=== PATIENT | female | born 1950 | race Caucasian/White ===

== ENCOUNTER → 2019-03-30 06:43 | Outpatient (CLI) | payer MEDICARE, OTHER ==
[~2019-03-30] VITALS: Ht 170.2 cm; Wt 100.0 kg
[~2019-03-30 06:43] MED LIST: ADVAIR 250/501 DISK INH; ALDACTONE50 MG PO; CATAPRES0.1 MG PO; CRESTOR10 MG PO; ECOTRIN81 MG PO; FOSAMAX 70 MG T70 MG; GLIMEPIRIDE1 MG PO; GUANFACINE; ICAPS AREDS1 TAB.SA PO; INDAPAMIDE2.5 MG PO; MENEST1.25 MG PO; MULTI-DAY VITAM1 TAB PO; NORVASC10 MG PO; PEPCID AC20 MG PO; POTASSIUM99 M1 PO; PROTONIX40 MG PO; RESTASIS EYE DR30 EA EACH EYE; RESTORIL15 MG PO; TOPROL XL25 MG PO; ZETIA10 MG PO
[2019-03-30 07:03] LABS: BASOPHILS 0.1 % (0-2); EOSINOPHILS 0.9 % (0-7); HEMOGLOBIN 13.1 g/dL (12-16); IMMATURE GRANULOCYTES 0.5 % (0-5); LYMPHOCYTES 17.4 % (15-50); MCHC 34.5 g/dL (31.0-37.0); MCV 95.7 fL (80.0-100.0); NEUTROPHILS 70.1 % (40-80); RBC 3.97 10x6/uL (4.00-5.40); RDW 17.6 % (11.5-14.5); WBC 7.9 10x3/uL (4.8-10.8)
[2019-03-30 07:19] LABS: ANION GAP 17.5 mmol/L (8-16); CALCIUM 8.5 mg/dL (8.5-10.1); CARBON DIOXIDE 18.7 mmol/L (21.0-32.0); POTASSIUM - SERUM 3.2 mmol/L (3.5-5.1)
[2019-03-30 07:37] LABS: APTT 30.2 SECONDS (22.8-39.4); INR 1.32 (0.85-1.17); PROTIME 15.8 SECONDS (11.6-15.0)
[2019-03-30 07:38] LABS: PLATELET COUNT 54 10x3/uL (130-400)
[2019-03-30 07:59] VITALS: BP 112/41; Ht 170.2 cm; Wt 100.0 kg
== END | disposition home or self-care (01) ==
LOC: D.SP 06:43 → D.CT 08:00 → D.SP 08:00
PROVIDERS: General Practice; ATTEND Internal Medicine Gastroenterology
DX: K74.60 Unspecified cirrhosis of liver (principal); Z53.9 Procedure and treatment not carried out, unspecified reason; Z01.812 Encounter for preprocedural laboratory examination

== ENCOUNTER 2019-04-06 06:11 | Outpatient (CLI) | payer MEDICARE, OTHER ==
[~2019-04-06] VITALS: Ht 170.2 cm; Wt 102.3 kg
--- NOTE | ~2019-04-06 | HEMODYNAMI ---
PATIENT:LAUREEN OTERO MEDICAL RECORD: [id number] : 50 [id number] ADMISSION DATE: 04/06/19 Generatedon:04/06/201910:59 Patient name: LAUREEN OTERO Patient #: [id number] SSN: : 1950 Date of study: 04/06/2019 Page: Of Hemodynamic Procedure Report Patient Data Patient Demographics Procedure consent was obtained First Name: LAUREEN Gender: Female Last Name: BRANDEN : 1950 Middle Initial: Ilana Age: 68 year(s) Patient #: [id number] Race: Unknown Additional ID: [id number] Contact details [address]: [address] [place] [address] ROAD State: [place] City: [place] Zip code: [address] Admission Admission Data Admission Date: 04/06/2019 Admission Time: 6:11 Procedure Procedure Types Cath Procedure Peripheral Cath Diagnostic Procedure Miscellaneous Procedure Description Procedure Date Procedure Date: 04/06/2019 Procedure Start Time: 10:31 Procedure Staff Name Function Arpan Mehta MD Performing Physician Delon Ortiz RT Monitor SEA PELAEZ RT Scrub Tiffany Sosa RN Nurse Monique Lopez RN Nurse Procedure Data Cath Procedure Fluoroscopy Diagnostic fluoroscopy Total fluoroscopy Time: 7.1 time: 7.1 min min Diagnostic fluoroscopy Total fluoroscopy dose: 178 dose: 178 mGy mGy Contrast Material Contrast Material Type Amount (ml) Isovue 300 10 Procedure Medications Medication Administration Route Dosage Heparin Flush Bag added to field 1 bags (1000units/500ml NS) Lidocaine 1% added to field 20 Versed I.V. 1 mg Fentanyl I.V. 50 mcg Hemodynamics Rest Heart Rate: 79 (bpm) Snapshots Pre Cath Intra NCS Post Cath Vital Signs Time Heart Resp SPO2 etCO2 NIBP (mmHg) Rhythm Pain Sedation Rate (ipm) (%) (mmHg) Status Level (bpm) 10:17:19 78 24 100 19.5 137/60(92) NSR 0 (11) 10(A) , No pain 10:23:32 81 29 100 20.3 145/64(94) NSR 0 (11) 10(A) , No pain 10:27:58 76 23 100 21 144/64(91) NSR 0 (11) 10(A) , No pain 10:32:04 83 23 100 22.6 156/77(108) NSR 0 (11) 8(A) , No pain 10:36:30 84 36 100 23.3 134/58(102) NSR 0 (11) 8(A) , No pain 10:40:55 81 19 100 21.8 145/65(100) NSR 0 (11) 8(A) , No pain 10:45:17 79 20 100 22.6 145/65(95) NSR 0 (11) 8(A) , No pain 10:50:16 66 43 99 22.5 Measuring NSR 0 (11) 8(A) , No pain 10:50:35 95 23 99 22.5 129/63(95) NSR 0 (11) 8(A) , No pain 10:54:53 86 14 99 21.8 145/73(101) NSR 0 (11) 8(A) , No pain 10:59:29 80 22 100 18.8 137/29(36) NSR 0 (11) 8(A) , No pain Medications Time Medication Route Dose Verified Delivered Reason Notes Effec tiveness by by 10:23:57 Heparin Flush added 1 Arpan Antony used for Bag to bags Tyson Mehta MD procedure (1000units/500ml field RAMIREZ NS) 10:24:16 Lidocaine 1% added 20ml Arpan Antony used for to vial Tyson Mehta MD procedure field RAMIREZ 10:30:37 Versed I.V. 1 mg Arpan Allen for Ian Mehta RN sedation 10:30:48 Fentanyl I.V. 50 Arpan Allen for mcg Ian Mehta RN sedation Procedure Log Time Note 10:03:40 Delon Ortiz RT (R) (CV) sent for patient. Start room use. 10:03:48 Time tracking: Regular hours (M-F 7:00 - 5:00) 10:03:55 Plan of Care:Hemodynamics will remain stable., Cardiac rhythm will remain stable., Comfort level will be maintained., Respiratory function will remain adequate., Patient/ family verbilizes understanding of procedure., Procedure tolerated without complication., Recovers from procedure without complications.. 10:04:07 Patient received from Outpatients to IR Alert and oriented. Tansferred to table in Supine position. 10:04:11 Correct patient and procedure confirmed by team. 10:04:14 Signed procedure consent form obtained from patient. 10:08:11 ECG and BP/O2 sat monitors applied to patient. 10:08:12 - 10:08:13 Full Disclosure recording started 10:08:18 H&P Date Dictated: 04/06/2019 H&P Addendum completed by physician on day of procedure. (MUST COMPLETE FOR ALL OUTPATIENTS). 10:08:19 Pre-procedure instructions explained to patient. 10:08:20 Pre-op teaching completed and patient verbalized understanding. 10:08:21 Family in waiting room. 10:08:23 Patient NPO since Midnight. 10:10:22 Is the patient allergic to Iodine/contrast media? No. 10:10:26 Was the patient premedicated? No 10:10:31 Is patient on blood thinner?No 10:10:32 - 10:10:33 ----Pre-sedation anethsthesia assessment.---- 10:10:37 Previous problem with sedation/anesthesia? No ? 10:10:38 Snore? Yes 10:10:39 Sleep apnea? No 10:10:42 Deviated septum? No 10:10:44 Opens mouth fully? Yes 10:10:46 Sticks out tongue? Yes 10:10:53 Dentures? No ? 10:11:01 Airway obstruction? Yes asthma 10:11:10 Patient pain scale 0/10 no pain. 10:11:19 IV patent on arrival in left forearm with 0.45%NaCl at [facility]. 10:11:24 Sharps counted by scrub and verified by R.N. 10:11:25 Alarms reviewed by R. N. 10:11:34 Right neck area was prepped with chlora-prep and draped in sterile fashion 10:11:40 Use device set IR Diagnostic 10:11:41 Bag Decanter (2002S) opened to sterile field. 10:11:42 Sterile Angiographic Pack opened to sterile field. 10:13:21 Micropuncture VSI 4FR kit opened to sterile field. 10:13:21 Tegaderm 4 x 4 (1626W) opened to sterile field. 10:22:16 Vital chart was started 10:22:20 Baseline sample Acquired. 10:23:57 Heparin Flush Bag (1000units/500ml NS) 1 bags added to field was administered by Arpan Mehta MD; used for procedure; 10:24:16 Lidocaine 1% 20ml vial added to field was administered by Arpan Mehta MD; used for procedure; 10:30:24 Physician arrived 10:30:25 --------ALL STOP TIME OUT------ 10:30:25 Final Timeout: patient, procedure, and site verified with staff and physician. All members of the team are in agreement. 10:30:34 Right neck site verified by team. 10:30:37 Versed 1 mg I.V. was administered by Tiffany Sosa RN; for sedation; 10:30:41 Fire Safety Assessment: A--An alcohol-based skin anteseptic being used preoperatively., C--Open oxygen or nitrous oxide is being used. 10:30:45 Sedation plan: IV Moderate Sedation Medication:Versed, Fentanyl 10:30:48 Fentanyl 50 mcg I.V. was administered by Tiffany Sosa RN; for sedation; 10:31:00 Procedure started. 10:31:06 Local anesthetic to right IJ vein with Lidocaine 1% by Arpan Mehta MD.INITIAL ACCESS ONLY 10:33:17 KIT LIVER BX ACCESS (D75001) opened to sterile field. 10:33:17 GLIDE CATHETER 5FR ANGLED 65cm (CG507) opened to sterile field. 10:37:06 SHEATH 6FR [place] (SOX423) opened to sterile field. 10:38:17 GLIDE WIRE MERIT Angled 260cm ([id number]) opened to sterile field. 10:40:29 AMPLATZ Short Taper 260cm wire ([id number]) opened to sterile field. 10:52:34 Procedure ended.(Physican Out) 10:52:57 Fluoroscopy time 07.10 minutes. 10:53:01 Fluoroscopy dose: 178 mGy 10:53:01 Flurop Dose total: 178 10:53:06 Sharps counted by scrub and verified by R.N. 10:53:07 Insertion/operative site no bleeding no hematoma. 10:53:12 Post-op/insertion site Right Jugular vein dressed using a 4 x 4 and Tegaderm. 10:53:16 Post right IJ vein:stable 10:53:26 Contrast amount:Isovue 300 10ml. 10:54:25 Post procedure instruction explained to patient.Patient verbalizes understanding. 10:54:25 Procedure and supply charges have been captured, reviewed, submitted an d are correct. 10:59:22 Report given to Outpatients. 10:59:26 Patient transfered to Outpatients with Stretcher. 10:59:46 Vital chart was stopped Device Usage Item Name Manufacture Quantity Catalog Number Hospital Part Current M inimal Lot# / Charge Number Stock Stock Serial# Code Bag Decanter Microtek 1 [id number] 5 () Medical Inc. Sterile Cardinal 1 [id number] 190737 5 Angiographic Health Pack Micropuncture VSI VASCULAR 1 [id number] 909721 220286 5 VSI 4FR kit SOLUTIONS Tegaderm 4 x 4 3M 1 1626W 181897 089804 770689 5 (1626W) KIT LIVER BX Cook Medical 1 T60034 601110 118503 564296 5 [id number] ACCESS ([id number]) GLIDE CATHETER Terumo 1 CG507 936998 153816 5 5FR ANGLED 65cm (CG507) SHEATH 6FR Terumo 1 AIH153 957182 625175 161540 4 0 [place] ([id number]) GLIDE WIRE Merit 1 [id number] 660991 537616 077546 5 [id number] MERIT Angled Medical 260cm ([id number]) AMPLATZ Short [place] 1 [id number] 033729 362858 549128 5 [id number] Taper 260cm Scientific wire ([id number]) Signature Audit [place] Stage Time Signature Unsigned Intra-Procedure 04/06/2019 Delon 10:59:43 AM Diana RT (R) (CV) Signatures Monitor : Delon Signature : Diana RT Date : Time : [address] [address] [place] [address]
[2019-04-06 06:44] LABS: BASOPHILS 0.3 % (0-2); EOSINOPHILS 1.5 % (0-7); HEMATOCRIT 34.2 % (36.0-48.0); HEMOGLOBIN 11.6 g/dL (12-16); IMMATURE GRANULOCYTES 0.3 % (0-5); LYMPHOCYTES 16.7 % (15-50); MCHC 33.9 g/dL (31.0-37.0); MCV 97.2 fL (80.0-100.0); MEAN PLATELET VOLUME 12.5 fL (7.4-10.4); MONOCYTES 10.2 % (2-11); RBC 3.52 10x6/uL (4.00-5.40); RDW 17.7 % (11.5-14.5)
[2019-04-06 06:59] LABS: ANION GAP 13.1 mmol/L (8-16); CALCIUM 9.2 mg/dL (8.5-10.1); CARBON DIOXIDE 21.3 mmol/L (21.0-32.0); CREATININE - SERUM 1.9 mg/dL (0.6-1.3); POTASSIUM - SERUM 3.4 mmol/L (3.5-5.1)
[2019-04-06 07:03] LABS: PLATELET COUNT 42 10x3/uL (130-400)
[2019-04-06 07:12] LABS: APTT 34.1 SECONDS (22.8-39.4); INR 1.34 (0.85-1.17)
[2019-04-06 07:16] VITALS: BP 127/51; Ht 170.2 cm; Wt 102.3 kg
--- NOTE | 2019-04-06 08:25 | NUR ---
PT HAS BRUISES TO BUE AND BLE, PT STATES THAT BRUISING IS CHRONIC DUE TO LOW PLATELETS.
[2019-04-06 11:17] LABS: PLATELET COUNT 46 10x3/uL (130-400)
[2019-04-06 12:11] LABS: PLATELET ESTIMATE DECREASED
--- NOTE | 2019-04-06 12:42 | NUR ---
1230 SEE POST PROCEDURE CHECKLIST FOR VITAL SIGN TRENDS. 1235 PLACED ON BEDPAN, VOIDS 200CC YELLOW URINE. 12[address] [facility] SERVED ADA FINGER FOOD DIET ORDERED.
--- NOTE | 2019-04-06 12:58 | NUR ---
1245 NO BLEEDING NOR HEMATOMA NOTED. 1255 FINGER FOOD DIET SERVED. FAMILY RETURNED TO ROOM. HOB ELEVATED TO 45 DEGREES TO EAT.
== END 2019-04-06 16:25 | disposition home or self-care (01) ==
LOC: D.SP 06:11 → D.RAD 08:00 → D.SP 08:00
PROVIDERS: ATTEND General Practice
DX: K74.60 Unspecified cirrhosis of liver (principal); D69.6 Thrombocytopenia, unspecified; Z01.812 Encounter for preprocedural laboratory examination

== ENCOUNTER 2019-04-29 09:23 | Day surgery (SDC) | payer MEDICARE, OTHER ==
[~2019-04-29] VITALS: Ht 170.2 cm; Wt 95.5 kg
[2019-04-29 09:58] LABS: HEMOGLOBIN 12.1 g/dL (12-16); MCH 33.4 pg (26.0-34.0); MCHC 34.6 g/dL (31.0-37.0); MCV 96.7 fL (80.0-100.0); MEAN PLATELET VOLUME 10.6 fL (7.4-10.4); PLATELET COUNT 52 10x3/uL (130-400); RBC 3.62 10x6/uL (4.00-5.40); RDW 17.5 % (11.5-14.5); WBC 4.9 10x3/uL (4.8-10.8)
[2019-04-29 10:03] LABS: APTT 29.8 SECONDS (22.8-39.4); INR 1.4 (0.85-1.17); PROTIME 16.6 SECONDS (11.6-15.0)
[2019-04-29 10:10] LABS: ALBUMIN 3.3 g/dL (3.4-5.0); ANION GAP 13.4 mmol/L (8-16); BILIRUBIN - TOTAL 1.84 mg/dL (0.2-1.3); CALCIUM 8.3 mg/dL (8.5-10.1); CARBON DIOXIDE 20.7 mmol/L (21.0-32.0); CREATININE - SERUM 2.1 mg/dL (0.6-1.3); POTASSIUM - SERUM 3.1 mmol/L (3.5-5.1); PROTEIN - SERUM 6.3 g/dL (6.4-8.2)
[2019-04-29] MEDS ORDERED: CALCIUM 500 +1 EAC3 PO (10:22)
[2019-04-29] MEDS ORDERED: SYMBICORT 16010.2 GM INH (10:23)
[2019-04-29] MEDS ORDERED: KEFLEX500 MG PO (10:23)
[2019-04-29] MEDS ORDERED: AMOXICILLIN500 M1 PO (10:24)
[2019-04-29] MEDS ORDERED: SINGULAIR10 MG PO (10:24)
[2019-04-29 10:28] VITALS: BP 114/45; Ht 170.2 cm; Wt 95.5 kg
[2019-04-29 11:17] LABS: PLATELET ESTIMATE DECREASED
--- NOTE | 2019-04-29 11:31 | NUR ---
1131 LOW SODIUM FULL LIQUID DIET ORDERED. DR. SALVATORE PAYAN.
--- NOTE | 2019-04-29 12:27 | NUR ---
1220 ALL DISCHARGE INSTRUCTIONS GIVEN. IV REMOVED WITH CATHALON INTACT. DRESSED AT BEDSIDE. TAKEN DOWN VIA W/C AND DC'D HOME. ADVISED TO CALL OR COME BACK IF ANY PROBLEMS.
--- NOTE | 2019-04-29 17:26 | OP ---
PATIENT NAME: LAUREEN OTERO MEDICAL RECORD: [id number] :50 LOCATION:[facility] ADMISSION DATE: SURGEON: TOM CHASE DO DATE OF OPERATION: 04/29/2019 PROCEDURE: EGD with biopsies. INDICATIONS FOR PROCEDURE: Cirrhosis. SCOPE: Olympus video gastroscope. MEDICATIONS: Propofol 320 mg IV per anesthesia. ESTIMATED BLOOD LOSS: Minimal. COMPLICATIONS: None. FINDINGS: Informed consent was given. The patient was made comfortable with the above medication. After reaching an adequate level of sedation by slow IV push, the patient was placed on her left side. The endoscope was advanced under direct visualization through the mouth to the fourth portion of the duodenum with ease. The upper esophagus appeared normal. In the middle and distal thirds of the esophagus, there were grade II to grade III esophageal varices without bleeding stigmata present. No bands were placed on today's examination and these will be reevaluated in the future. At the GE junction, there was evidence of LA class A reflux-induced esophagitis. The endoscope was advanced beyond the GE junction into the stomach and retroflexed to view the cardia, which appeared relatively normal. Throughout the stomach, there was diffuse sgwryvmk-vw-ioehma portal hypertensive gastropathy characterized by congestion and erythema. In the fundus and body of the stomach, there were multiple fundic gland polyps. There was a group of approximately 4 polyps in the mid body of the stomach that were fairly large. Sizes ranged from approximately 1 cm to 1.5 cm. These were not actively bleeding, but can be a source of oozing of blood chronically. Due to the patient's low platelet level near 50,000 and elevated INR above 1.4 on today's examination, these were not biopsied or removed due to their high risk of significant bleeding. A single cold forceps biopsy was taken from the antrum to submit for histopathology and to rule out the presence of H. pylori. The endoscope was advanced beyond the pylorus into the duodenum down to the fourth portion with ease. The duodenum appeared normal, but did have obbm-ng-xzrnwdye portal hypertensive duodenopathy. The endoscope was withdrawn from the patient. The patient tolerated the procedure well and there were no complications. IMPRESSION: 1. Grade II to grade III esophageal varices without bleeding stigmata. No bands were placed on today's examination. 2. LA class A reflux-induced esophagitis. 3. Portal hypertensive gastropathy. 4. Multiple fundic gland polyps. 5. Portal hypertensive duodenopathy. PLAN AND RECOMMENDATIONS: 1. Discharge home when recovery parameters are met. 2. Follow up biopsy specimen results. 3. GERD diet and reflux precautions and a low sodium diet. OPERATIVE REPORT [id number] LAUREEN OTERO 4. We will recommend a repeat EGD in approximately 6 months' time to reevaluate the esophageal varices and fundic gland polyps. Prior to that procedure, I do recommend that we give the patient Doptelet to raise her platelet levels and can consider administration of FFP at the time of the procedure if the INR is significantly elevated. Pending lab results, may consider banding and removal of polyps at that time. TRANSINT:[id number] Voice Confirmation ID: [id number] DOCUMENT ID: [id number] TOM CHASE DO at 1726 CC: [id number] DICTATION DATE: 04/29/19 1105 HIP HOP DANCER: 04/29/19 1120 [facility] 04/29/19 [facility] [address] [place] [address]
== END 2019-04-29 12:20 | disposition home or self-care (01) ==
LOC: D.OPS 09:23
PROVIDERS: Anesthesiology; ATTEND Internal Medicine Gastroenterology
DX: K74.60 Unspecified cirrhosis of liver (principal); K76.6 Portal hypertension; K31.89 Other diseases of stomach and duodenum; I85.10 Secondary esophageal varices without bleeding; K31.7 Polyp of stomach and duodenum; Z01.812 Encounter for preprocedural laboratory examination

== ENCOUNTER 2019-05-01 06:17 | Outpatient (CLI) | payer MEDICARE, OTHER ==
[~2019-05-01] VITALS: Ht 170.2 cm; Wt 95.5 kg
[~2019-05-01 06:17] MED LIST changes: +AMOXICILLIN500 M1 PO; +CALCIUM 500 +1 EAC3 PO; +KEFLEX500 MG PO; +SINGULAIR10 MG PO; +SYMBICORT 16010.2 GM INH
[2019-05-01 06:37] LABS: BASOPHILS 0.4 % (0-2); EOSINOPHILS 1.6 % (0-7); HEMATOCRIT 33.9 % (36.0-48.0); HEMOGLOBIN 11.5 g/dL (12-16); IMMATURE GRANULOCYTES 0.2 % (0-5); LYMPHOCYTES 17.7 % (15-50); MCHC 33.9 g/dL (31.0-37.0); MCV 97.1 fL (80.0-100.0); MONOCYTES 10.3 % (2-11); NEUTROPHILS 69.8 % (40-80); RBC 3.49 10x6/uL (4.00-5.40); RDW 17.8 % (11.5-14.5); WBC 4.5 10x3/uL (4.8-10.8)
[2019-05-01 06:46] LABS: INR 1.43 (0.85-1.17); PLATELET COUNT 45 10x3/uL (130-400); PROTIME 16.8 SECONDS (11.6-15.0)
[2019-05-01 06:50] LABS: ANION GAP 14.5 mmol/L (8-16); CARBON DIOXIDE 18.7 mmol/L (21.0-32.0); POTASSIUM - SERUM 3.2 mmol/L (3.5-5.1)
[2019-05-01 07:52] VITALS: BP 120/44; Ht 170.2 cm; Wt 95.5 kg
== END 2019-05-01 13:30 | disposition home or self-care (01) ==
LOC: D.SP 06:17 → D.CT 08:00 → D.SP 08:30
PROVIDERS: Radiology Diagnostic Radiology; ATTEND Internal Medicine Gastroenterology
DX: K74.60 Unspecified cirrhosis of liver (principal); Z01.812 Encounter for preprocedural laboratory examination

== ENCOUNTER 2019-12-21 10:23 | Day surgery (SDC) | payer MEDICARE, OTHER ==
[~2019-12-21] VITALS: Ht 170.2 cm; Wt 95.9 kg
[2019-12-21 11:09] LABS: HEMATOCRIT 34.2 % (36.0-48.0); MCH 31.4 pg (26.0-34.0); MCHC 32.2 g/dL (31.0-37.0); MCV 97.7 fL (80.0-100.0); MEAN PLATELET VOLUME 11.8 fL (7.4-10.4); RDW 19.3 % (11.5-14.5); WBC 5.9 10x3/uL (4.8-10.8)
[2019-12-21 11:12] LABS: ANION GAP 14.1 mmol/L (8-16); CALCIUM 8.6 mg/dL (8.5-10.1); CARBON DIOXIDE 19.7 mmol/L (21.0-32.0); CREATININE - SERUM 2.2 mg/dL (0.6-1.3); POTASSIUM - SERUM 3.8 mmol/L (3.5-5.1)
[2019-12-21 11:19] LABS: PLATELET COUNT 35 10x3/uL (130-400)
[2019-12-21] MEDS ORDERED: NOVOLIN R100 U/ML SC (11:40)
[2019-12-21] MEDS ORDERED: CHRONULAC30 ML PO (11:41)
[2019-12-21] MEDS ORDERED: PRIMSOL50 MG/5 ML PO (11:41)
[2019-12-21] MEDS ORDERED: XIFAXAN550 MG PO (11:42)
[2019-12-21] MEDS ORDERED: CULTURELLE HLT1 EACH (11:43)
[2019-12-21] MEDS ORDERED: RECLAST 55 MG/100 M IV (11:44)
[2019-12-21 11:46] VITALS: BP 131/57; Ht 170.2 cm; Wt 95.9 kg
[2019-12-21 11:52] LABS: INR 1.42 (0.85-1.17); PROTIME 17.3 SECONDS (11.6-15.0)
[2019-12-21 12:44] LABS: PLATELET ESTIMATE DECREASED
--- NOTE | 2019-12-21 15:24 | NUR ---
1510 IV REMOVED AND INSTRUCTIONS GIVEN ON TRANSFUSION AND UPPER GI
--- NOTE | 2019-12-22 13:06 | OP ---
PATIENT NAME: LAUREEN OTERO MEDICAL RECORD: [id number] :50 LOCATION:[facility] ADMISSION DATE: SURGEON: TOM CHASE DO DATE OF OPERATION: 12/21/2019 PROCEDURE: EGD. INDICATIONS: Cirrhosis with a history of esophageal varices. SCOPE: Olympus video gastroscope. MEDICATIONS: Propofol 220 mg IV per anesthesia. ESTIMATED BLOOD LOSS: Minimal. COMPLICATIONS: None. FINDINGS: Informed consent was given. The patient was made comfortable with the above medication. After reaching an adequate level of sedation by slow IV push, the patient was placed on her left side. The endoscope was advanced under direct visualization through the mouth to the second portion of the duodenum. In the esophagus, there were grade II esophageal varices in the mid and distal esophagus. There were no bleeding stigmata and no bands were placed on today's examination. At the GE junction, there was evidence of LA class A reflux-induced esophagitis. The endoscope was advanced beyond the GE junction into the stomach. Throughout the stomach, there was moderate portal hypertensive gastropathy. Retroflexion was performed to look at the cardia and fundus. There were no gastric varices visualized. There was a small sliding hiatal hernia. Throughout the stomach, there were fundic gland polyps of varying sizes. No biopsies were taken of these polyps today due to the patient's low platelet level and elevated INR. The endoscope was advanced beyond the pylorus into the duodenum where there was evidence of portal hypertensive duodenopathy. The endoscope was withdrawn from the patient. The patient tolerated the procedure well and there were no immediate complications. IMPRESSION: 1. Grade II esophageal varices involving the mid and distal esophagus. 2. LA class A reflux-induced esophagitis. 3. Multiple fundic gland polyps located throughout the stomach. 4. Moderate portal hypertensive gastropathy and duodenopathy. 5. Small sliding hiatal hernia. PLAN AND RECOMMENDATIONS: 1. Discharge home when recovery parameters are met. 2. GERD diet and reflux precautions as well as a low sodium diet. 3. Follow up in GI clinic as scheduled for surveillance of cirrhosis. 4. Repeat EGD in 1 year for esophageal variceal surveillance. Prior to the procedure, the patient should receive Doptelet to raise her platelet levels. Depending on her INR level at that time, she may or may not need some FFP given as well. TRANSINT:[id number] Voice Confirmation ID: [id number] DOCUMENT ID: [id number] OPERATIVE REPORT [id number] LAUREEN OTERO,TOM Mcgregor DO at 1306 CC: [id number] DICTATION DATE: 12/21/19 1355 KILN OPERATOR: 12/21/19 2209 [facility] 12/21/19 [place] [id number]
== END 2019-12-21 14:10 | disposition home or self-care (01) ==
LOC: D.OPS 10:23
PROVIDERS: Anesthesiology; ATTEND Internal Medicine Gastroenterology
DX: K74.60 Unspecified cirrhosis of liver (principal); J45.909 Unspecified asthma, uncomplicated; Z86.010 Personal history of colon polyps; E11.9 Type 2 diabetes mellitus without complications; Z79.84 Long term (current) use of oral hypoglycemic drugs; K72.90 Hepatic failure, unspecified without coma; D69.6 Thrombocytopenia, unspecified

== ENCOUNTER 2020-03-14 17:26 | Inpatient (IN) | payer MEDICARE, OTHER ==
[~2020-03-14] VITALS: Ht 170.2 cm; Wt 92.8 kg
--- NOTE | ~2020-03-14 | HEMODYNAMI ---
PATIENT:LAUREEN OTERO MEDICAL RECORD: [id number] : 50 LOCATION:D. D.2105 ADMISSION DATE: 03/14/20 Generatedon:03/15/202012:32 Patient name: LAUREEN OTERO Patient #: [id number] SSN: : 1950 Date of study: 03/15/2020 Page: Of Hemodynamic Procedure Report Patient Data Patient Demographics Procedure consent was obtained First Name: LAUREEN Gender: Female Last Name: BRANDEN : 1950 [facility] Initial: Ilana Age: 69 year(s) Patient #: [id number] Race: Unknown Additional ID: [id number] Contact details Address: [address] [place] [address] ROAD State: [place] City: [place] Zip code: [address] Past Medical History Allergies Allergen Reaction Date Comments Reported Zocor 03/15/2020 YAEL inhibitors 03/15/2020 Other allergy 03/15/2020 latex Admission Admission Data Admission Date: 03/14/2020 Admission Time: 21:31 Room #: D.2105 Procedure Procedure Types Cath Procedure Peripheral Cath Diagnostic Procedure Director Of Midwifery/Staff Midwife Peripheral Procedures Miscellaneous PARACENTESIS WITH GUIDE Procedure Description Procedure Date Procedure Date: 03/15/2020 Procedure Start Time: 11:56 Procedure Staff Name Function Tristan Alonso MD Performing Physician Lesa Childers RT Hog Cutter Delon Ortiz RT Scrub Monique Lopez RN Nurse Valeria MCDONOUGH RN Nurse Hemodynamics Rest Pre Cath Intra NCS Post Cath Procedure Log Time Note 11:31:26 [id number] 8FR CATH DRAIN TRAY opened to sterile field. 11:33:25 Signed procedure consent form obtained from patient. 11:45:29 Time tracking: Regular hours (M-F 7:00 - 5:00) 11:45:35 Plan of Care:Hemodynamics will remain stable., Cardiac rhythm will remain stable., Comfort level will be maintained., Respiratory function will remain adequate., Patient/ family verbilizes understanding of procedure., Procedure tolerated without complication., Recovers from procedure without complications.. 11:45:43 Patient received from [employer] II to IR Alert and oriented. Tansferred to table in Supine position. 11:45:52 H&P Date Dictated: 03/15/2020 Within 30 days and on chart.. 11:45:54 Pre-procedure instructions explained to patient. 11:45:55 Pre-op teaching completed and patient verbalized understanding. 11:45:59 Family unavailable. 11:46:01 Patient NPO since Midnight. 11:46:21 Patient allergic to Zocor 11:46:24 Patient allergic to YAEL inhibitors 11:47:13 Patient allergic to Other allergylatex 11:47:33 - 11:47:44 Is patient on blood thinner?No 11:47:47 Patient diabetic? Yes. 11:47:50 If diabetic: On Metformin? No 11:47:57 ----Pre-sedation anethsthesia assessment.---- 11:48:00 Previous problem with sedation/anesthesia? No ? 11:48:03 Snore? No 11:48:07 Sleep apnea? No 11:48:14 Deviated septum? No 11:48:17 Opens mouth fully? Yes 11:48:19 Sticks out tongue? Yes 11:48:23 Airway obstruction? No ? 11:48:27 Dentures? No ? 11:48:29 - 11:48:38 Right abdomen area was prepped with chlora-prep and draped in sterile fashion 11:49:00 Fire Safety Assessment: A--An alcohol-based skin anteseptic being used preoperatively., C--Open oxygen or nitrous oxide is being used. 11:49:15 - 11:55:34 Physician arrived 11:55:35 --------ALL STOP TIME OUT------ 11:55:35 Final Timeout: patient, procedure, and site verified with staff and physician. All members of the team are in agreement. 11:55:40 Right abdomen site verified by team. 11:55:45 Sedation plan: Local Anesthetic Medication:Lidocaine 11:55:58 Procedure started. 11:55:59 Full Disclosure recording started 11:56:03 Local anesthetic to Abdominal area with Lidocaine 1% by Tristan Alonso MD.INITIAL ACCESS ONLY 12:30:11 Procedure ended.(Physican Out) 12:31:03 4.4 liters drained from abdomen Device Usage Item Name Manufacture Quantity Catalog Hospital Part Current Minimal Lot# / Number Charge Number Stock Stock Serial# Code [id number] CareFusion 1 [id number] 8FR CATH DRAIN TRAY Signature Audit [place] Stage Time Signature Unsigned Intra-Procedure 03/15/2020 Lesa Childers 12:32:36 PM RT(R) [facility] [address] [place] [address]
[~2020-03-14 17:26] MED LIST changes: +CHRONULAC30 ML PO; +CULTURELLE HLT1 EACH; +NOVOLIN R100 U/ML SC; +PRIMSOL50 MG/5 ML PO; +RECLAST 55 MG/100 M IV; +XIFAXAN550 MG PO
[2020-03-14] MEDS ORDERED: MACROBID100 MG PO (18:05)
[2020-03-14 18:32] LABS: BASOPHILS 0.1 % (0-2); EOSINOPHILS 0.5 % (0-7); HEMATOCRIT 35.6 % (36.0-48.0); HEMOGLOBIN 11.6 g/dL (12-16); IMMATURE GRANULOCYTES 0.7 % (0-5); LYMPHOCYTES 8.1 % (15-50); MCH 31.6 pg (26.0-34.0); MCHC 32.6 g/dL (31.0-37.0); MEAN PLATELET VOLUME 10.4 fL (7.4-10.4); NEUTROPHILS 80.6 % (40-80); RBC 3.67 10x6/uL (4.00-5.40); RDW 17.8 % (11.5-14.5); WBC 8.7 10x3/uL (4.8-10.8)
[2020-03-14 18:34] LABS: PLATELET COUNT 64 10x3/uL (130-400)
[2020-03-14 18:55] LABS: ANION GAP 20.1 mmol/L (8-16); CALCIUM 7.8 mg/dL (8.5-10.1); CARBON DIOXIDE 15.2 mmol/L (21.0-32.0); CREATININE - SERUM 2.8 mg/dL (0.6-1.3); POTASSIUM - SERUM 3.3 mmol/L (3.5-5.1)
[2020-03-14 19:02] LABS: ALBUMIN 3.1 g/dL (3.4-5.0); BILIRUBIN - TOTAL 2.31 mg/dL (0.2-1.3); PROTEIN - SERUM 6.4 g/dL (6.4-8.2)
[2020-03-14 19:06] LABS: PLATELET ESTIMATE DECREASED
[2020-03-14 19:20] LABS: APTT 35.5 SECONDS (22.8-39.4); INR 1.58 (0.85-1.17); PROTIME 18.7 SECONDS (11.6-15.0)
[2020-03-14 19:45] LABS: BILIRUBIN NEGATIVE (NEGATIVE); GLUCOSE 50 mg/dL (NEGATIVE); KETONE NEGATIVE (NEGATIVE); NITRITE NEGATIVE (NEGATIVE); SPECIFIC GRAVITY 1.015 (1.005-1.020); UROBILINOGEN NORMAL (NORMAL)
[2020-03-14 22:52] LABS: AMYLASE - SERUM 142 U/L (25-115); LIPASE 719 U/L (73-393)
--- NOTE | 2020-03-14 23:05 | NUR ---
I WENT TO ER AND BROUGHT PT TO ROOM MYSELF AT THIS TIME AND TRANSFERED OVER. PT DENIES ALL PAIN AT THIS TIME ONLY NEEDS WATER WATER IS GOTTEN FOR HER BED LOW AND LOCKED AND PT MADE COMFORTABLE
[2020-03-14 23:54] LABS: CKMB 1.6 U/L (0.0-3.6); CREATINE KINASE 88 UL (21-215); MAGNESIUM - SERUM 1.7 mg/dL (1.8-2.4); TROPONIN-I 0.059 ng/mL (0.000-0.060)
[2020-03-15 04:00] VITALS: BP 150/54
[2020-03-15 06:15] LABS: CKMB 1.4 U/L (0.0-3.6); CREATINE KINASE 75 UL (21-215); TROPONIN-I 0.055 ng/mL (0.000-0.060)
--- NOTE | 2020-03-15 07:30 | NUR ---
PT SITTING UP IN BED. FAMILY MEMBER AT BEDSIDE. RR EVEN AND UNLABORED ON RA. DENIES NEEDS OR PAIN AT THIS TIME. MADE AWARE OF PROCEDURE TODAY. VERBALIZED UNDERSTANDING. CALL LIGHT WITHIN REACH. BED IN LOWEST POSITION. WILL CONTINUE TO MONITOR.
[2020-03-15 08:10] LABS: ANION GAP 15.5 mmol/L (8-16); BILIRUBIN - TOTAL 1.78 mg/dL (0.2-1.3); CALCIUM 7.1 mg/dL (8.5-10.1); CREATININE - SERUM 2.4 mg/dL (0.6-1.3); POTASSIUM - SERUM 3.5 mmol/L (3.5-5.1); PROTEIN - SERUM 4.8 g/dL (6.4-8.2)
[2020-03-15 08:11] LABS: ALBUMIN 2.3 g/dL (3.4-5.0)
[2020-03-15 08:49] LABS: BASOPHILS 0 % (0-2); EOSINOPHILS 0.9 % (0-7); HEMATOCRIT 29.6 % (36.0-48.0); HEMOGLOBIN 9.3 g/dL (12-16); IMMATURE GRANULOCYTES 0.9 % (0-5); LYMPHOCYTES 8.8 % (15-50); MCH 30.8 pg (26.0-34.0); MCHC 31.4 g/dL (31.0-37.0); MEAN PLATELET VOLUME 10.6 fL (7.4-10.4); MONOCYTES 14.7 % (2-11); NEUTROPHILS 74.7 % (40-80); RBC 3.02 10x6/uL (4.00-5.40)
[2020-03-15 08:54] LABS: WBC 4.6 10x3/uL (4.8-10.8)
[2020-03-15 08:55] LABS: PLATELET COUNT 38 10x3/uL (130-400)
--- NOTE | 2020-03-15 08:57 | NUR ---
CRITICAL PLATELET RECIEVED. SPOKE WITH CEASAR FROM SPECIALS ABOUT PARACENTESIS IF IT WAS STILL GOING TO BE DONE TODAY. STATES SHE WILL CHAECK WITH RADIOLOGIST AND GET BACK WITH ME
[2020-03-15 10:03] VITALS: BP 126/52
--- NOTE | 2020-03-15 10:11 | NUR ---
I have reviewed this patient and I concur with the Shift Assessment completed by the Licensed Practical Nurse today this shift.
[2020-03-15 11:25] LABS: CKMB 1.7 U/L (0.0-3.6); CREATINE KINASE 85 UL (21-215); TROPONIN-I 0.055 ng/mL (0.000-0.060)
--- NOTE | 2020-03-15 12:03 | NUR ---
D/C INSTRUCTIONS REVIEWED WTIH PT, VERBALIZED UNDERSTANDING. IV D/C WITH CATHTETER TIP INTACT. PT LEFT WITH ALL BELONGINGS VIA WHEELCHAIR.
[2020-03-15 12:49] VITALS: Ht 170.2 cm; Wt 92.8 kg
[2020-03-15 13:33] VITALS: BP 91/47
[2020-03-15 15:27] LABS: MACROPHAGES BF 37 %; MESOTHELIALS BF 8 %; NEUT - BF 33 %
[2020-03-15 18:29] VITALS: BP 117/53
[2020-03-15 20:00] VITALS: BP 107/46
[2020-03-16] VITALS (7 sets, daily range): BP systolic 96–144; BP diastolic 40–74
--- NOTE | 2020-03-16 01:19 | NUR ---
PT RESTING IN BED WITH EYES CLOSED AT THIS TIME. RR EVEN AND UNLABORED. FAMILY AT BEDSIDE. NO S/S OF DISTRESS. VITALS STABLE. BED LOW CALL LIGHT WITHIN REACH. WILL CONTINUE TO MONITOR.
--- NOTE | 2020-03-16 03:34 | NUR ---
I have reviewed this patient and I concur with the Shift Assessment completed by the Licensed Practical Nurse today this shift.
[2020-03-16] MEDS ORDERED: TOPROL XL25 MG PO (03:47)
[2020-03-16 09:39] LABS: ALBUMIN 2.6 g/dL (3.4-5.0); BILIRUBIN - TOTAL 1.47 mg/dL (0.2-1.3); CALCIUM 7.1 mg/dL (8.5-10.1); CARBON DIOXIDE 18.7 mmol/L (21.0-32.0); CREATININE - SERUM 2.3 mg/dL (0.6-1.3); PROTEIN - SERUM 5.1 g/dL (6.4-8.2)
[2020-03-16 09:41] LABS: BASOPHILS 0 % (0-2); HEMATOCRIT 27.4 % (36.0-48.0); HEMOGLOBIN 8.8 g/dL (12-16); IMMATURE GRANULOCYTES 0.2 % (0-5); LYMPHOCYTES 11.9 % (15-50); MCHC 32.1 g/dL (31.0-37.0); MCV 96.5 fL (80.0-100.0); MEAN PLATELET VOLUME 11.1 fL (7.4-10.4); MONOCYTES 13.9 % (2-11); RBC 2.84 10x6/uL (4.00-5.40); RDW 17.6 % (11.5-14.5); WBC 4.6 10x3/uL (4.8-10.8)
[2020-03-16 09:45] LABS: PLATELET COUNT 39 10x3/uL (130-400)
[2020-03-16 09:46] LABS: ANION GAP 14.2 mmol/L (8-16)
[2020-03-16 09:49] LABS: POTASSIUM - SERUM 2.9 mmol/L (3.5-5.1)
--- NOTE | 2020-03-16 11:18 | NUR ---
Nutrition Follow-up: Appetite/PO intake much improved following paracentesis yesterday (-4.4 L). Denies N/V/C/D. Diet: Low Na, Carb Consistent, Glucerna TID Wt: 199# (03/15) Last BM: 03/15 Labs noted: K+ 2.9, Glu 164, Ca 7.1, Alb 2.6 Meds noted: Lactulose, Humulin, Protonix, Lasix, KDur, Zofran -Encourage PO intake and honor food preferences within diet restrictions. -Monitor wt; noted daily wts ordered. -RD following.
--- NOTE | 2020-03-16 12:43 | NUR ---
NOTIFIED SENIOR DYNAMICS CRM DEVELOPER OF POTASSIUM AND PLT COUNT EARLIER THIS SHIFT.
[2020-03-16 13:11] LABS: IMMUNOFIXATION Note: (()); IMMUNOGLOBULIN A 229 mg/dL (87-352); IMMUNOGLOBULIN G 870 mg/dL (586-1602); IMMUNOGLOBULIN M 106 mg/dL (26-217)
[2020-03-16 14:10] LABS: SPE - A/G RATIO 1.4 (0.7-1.7); SPE - ALBUMIN 3.1 g/dL (2.9-4.4); SPE - ALPHA-1 GLOBULIN 0.3 g/dL (0.0-0.4); SPE - ALPHA-2 GLOBULIN 0.4 g/dL (0.4-1.0); SPE - BETA GLOBULIN 0.6 g/dL (0.7-1.3); SPE - GAMMA GLOBULIN 0.9 g/dL (0.4-1.8); SPE - M-SPIKE Not Observed g/dL (Not Observed); SPE - TOTAL PROTEIN 5.3 g/dL (6.0-8.5)
--- NOTE | 2020-03-16 14:44 | NUR ---
LEFT EAR PAIN REPORTED BY PT, PT AND DTR REPORT THIS IS ONGOING AND HAS BEEN TREATED BY HER MD IN THE PAST.
[2020-03-17 04:00] VITALS: BP 106/52
[2020-03-17 05:43] LABS: HEMATOCRIT 27.2 % (36.0-48.0); HEMOGLOBIN 9.1 g/dL (12-16); LYMPHOCYTES 14.6 % (15-50); MCH 32.4 pg (26.0-34.0); MCHC 33.5 g/dL (31.0-37.0); MCV 96.8 fL (80.0-100.0); MEAN PLATELET VOLUME 9.9 fL (7.4-10.4); NEUTROPHILS 72.1 % (40-80); RBC 2.81 10x6/uL (4.00-5.40); RDW 19.2 % (11.5-14.5); WBC 4.4 10x3/uL (4.8-10.8)
[2020-03-17 05:44] LABS: PLATELET COUNT 30 10x3/uL (130-400)
[2020-03-17 05:49] LABS: ANION GAP 12.7 mmol/L (8-16); CARBON DIOXIDE 21.3 mmol/L (21.0-32.0); CREATININE - SERUM 2.3 mg/dL (0.6-1.3); MAGNESIUM - SERUM 1.4 mg/dL (1.8-2.4); PHOSPHOROUS 2.1 mg/dL (2.5-4.9)
[2020-03-17 05:51] LABS: CALCIUM 6.9 mg/dL (8.5-10.1)
[2020-03-17 08:00] VITALS: BP 118/42
--- NOTE | 2020-03-17 11:36 | MORECARE ---
CASE MANAGEMENT DISCHARGE SUMMARY PATIENT: LAUREEN OTERO UNIT: [id number] ADM DATE: 03/14/20 AGE: 69 : 50 SEX: F ROOM/BED: D.2105 AUTHOR: KIMMY CHAVEZ PHYSICIAN: REFERRING PHYSICIAN: LYNN SORIANO MD DATE OF SERVICE: 03/17/20 Discharge Plan Patient Name: LAUREEN OTERO Facility: [facility]:[place] : 1950 Planned Disposition: Home with Home Health Anticipated Discharge Date: Discharge Date: Expected LOS: Initial Reviewer: [email or web address] Initial Review Date: 03/17/2020 Generated: 03/17/20 12:36 pm DCPIA - Discharge Planning Initial Assessment Updated by [email or web address]: Susu Hussein on 03/17/20 11:34 am * Is the patient Alert and Oriented? Yes * How many steps to enter\exit or inside your home? 3 w/rails * PCP Dr. Kaveh Perez * Pharmacy [facility] on [address] * Preadmission Environment Home with Family * ADLs Partial Dependent * Partial ADLs (Assistance needed) Ambulation * Equipment Walker * List name and contact numbers for known caregivers / representatives who currently or will assist patient after discharge: Tri Otero - DIL - [phone] * Verbal permission to speak to the caregivers and representatives has been obtained from the patient. Yes * Community resources currently utilized Home Health * Please name any agencies selected above. [facility] * Additional services required to return to the preadmission environment? No * Can the patient safely return to the preadmission environment? Yes * Has this patient been hospitalized within the prior 30 days at any hospital? No Patient Name: LAUREEN OTERO Page [id number] at 1136 All edits/amendments must be made on the electronic document DICTATION DATE: 03/17/20 1136 BEAVER TRAPPER: MATTHEW 03/17/20 1136 RPT#: [id number] DC DATE: STATUS: ADM IN [facility] [address] [id number] END OF REPORT
--- NOTE | 2020-03-17 11:45 | MORECARE ---
CASE MANAGEMENT DISCHARGE SUMMARY PATIENT: LAUREEN OTERO UNIT: [id number] ADM DATE: 03/14/20 AGE: 69 : 50 SEX: F ROOM/BED: D.4862 AUTHOR: SCOTT,DOC PHYSICIAN: REFERRING PHYSICIAN: LYNN SORIANO MD DATE OF SERVICE: 03/17/20 Discharge Plan Patient Name: LAUREEN OTERO Facility: [facility]:[place] : 1950 Planned Disposition: Home with Home Health Anticipated Discharge Date: Discharge Date: Expected LOS: Initial Reviewer: [email or web address] Initial Review Date: 03/17/2020 Generated: 03/17/20 12:44 pm Comments DCP- Discharge Planning Updated by [email or web address]: Susu Hussein on 03/17/20 10:[address] Patient Name: LAUREEN OTERO Admission Status: ER Accout number: [id number] Admission Date: 03-14-2020 : 1950 Admission Diagnosis:INTRA-ABD AND PELVIC SWELLING, MASS AND LUMP, UNSP SITE Attending: LYNN SORIANO Current LOS: 3 Anticipated DC Date: Planned Disposition: Home with Home Health Primary Insurance: MEDICARE A & B Discharge Planning Comments: CM met with patient to complete initial dc planning assessment. CM educated patient on the CM role and verbal consent given by patient to complete assessment. Patient lives at home with her spouse. Her DIL, Tri, is in the room and verbal permission received to discuss discharge planning with DIL present. At discharge patient plans to return home and feels this is a safe discharge. CM discussed availability of home health, rehab services, and medical equipment. Patient states she has [facility] and would like to continue this on discharge. States she has a nurse that comes out weekly and sets up her medication and checks on her. DIL states she or her are also available to stay with patient when needed. CM called [facility] and spoke with Shan and they will continue to see patient on discharge. CM will continue to follow and will assist as needed with dc plans/needs. Household Refrigeration Mechanic: Susu Hussein DCPIA - Discharge Planning Initial Assessment Updated by [id number]: Susu Hussein on 03/17/20 11:34 am * Is the patient Alert and Oriented? Yes * How many steps to enter\exit or inside your home? 3 w/rails * PCP Dr. Kaveh Perez * Pharmacy [facility] on [address] * Preadmission Environment Home with Family * ADLs Partial Dependent * Partial ADLs (Assistance needed) Ambulation * Equipment Walker * List name and contact numbers for known caregivers / representatives who currently or will assist patient after discharge: Tri Otero - DIL - [phone] * Verbal permission to speak to the caregivers and representatives has been obtained from the patient. Yes * Community resources currently utilized Home Health * Please name any agencies selected above. [facility] * Additional services required to return to the preadmission environment? No * Can the patient safely return to the preadmission environment? Yes * Has this patient been hospitalized within the prior 30 days at any hospital? No Coverage Notice Reviewer: [id number] Liseth Hussein Notice Issued Date-Time: 03/17/2020 11:40 Notice Type: Patient Choice Letter Notice Delivered To: Patient Relationship to Patient: Self Coordinator Integrated Marketing Name: Delivery Method: HAND - Hand Delivered Aziza Days: Prior Verbal Notification: Recipient Understood Notice: Yes Recipient Signature: Yes Med Rec Note Co-signed by Attending: Coverage Notice Comment: RUPERT for [facility] Reviewer: [id number] Liseth Hussein Notice Issued Date-Time: 03/17/2020 11:40 Notice Type: IM Discharge Notice Notice Delivered To: Patient Relationship to Patient: Self Coordinator Integrated Marketing Name: Delivery Method: HAND - Hand Delivered Aziza Days: Prior Verbal Notification: Recipient Understood Notice: Yes Recipient Signature: Yes Med Rec Note Co-signed by Attending: Coverage Notice Comment: IMM explained, signed, given, copy placed in MR Last DP export: 03/17/20 10:36 a Patient Name: LAUREEN OTERO Page [id number] at 1145 All edits/amendments must be made on the electronic document DICTATION DATE: 03/17/20 1144 HOME SERVICE ADVISOR: MATTHEW 03/17/20 1144 RPT#: [id number] DC DATE: STATUS: ADM IN [facility] [address] [place] [address] END OF REPORT
[2020-03-17 12:00] VITALS: BP 115/46
[2020-03-17 16:00] VITALS: BP 124/45
--- NOTE | 2020-03-17 19:22 | NUR ---
AWAKE AND ALERT WATER GOT FOR PT NO OTHER NEEDS CALL LIGHTY IS WITH PT AND FAMILY IS IN ROOM
[2020-03-17 20:00] VITALS: BP 107/39
[2020-03-18] VITALS: BP 113/48
[2020-03-18 04:00] VITALS: BP 112/46
[2020-03-18 04:51] LABS: CARBON DIOXIDE 22.7 mmol/L (21.0-32.0); CREATININE - SERUM 2.2 mg/dL (0.6-1.3)
[2020-03-18 04:56] LABS: ANION GAP 11.8 mmol/L (8-16); POTASSIUM - SERUM 3.5 mmol/L (3.5-5.1)
[2020-03-18 04:57] LABS: CALCIUM 6.8 mg/dL (8.5-10.1)
[2020-03-18 05:02] LABS: BASOPHILS 0 % (0-2); EOSINOPHILS 2.1 % (0-7); HEMATOCRIT 25.2 % (36.0-48.0); HEMOGLOBIN 8.4 g/dL (12-16); IMMATURE GRANULOCYTES 0.3 % (0-5); LYMPHOCYTES 14.9 % (15-50); MCH 31.9 pg (26.0-34.0); MCHC 33.3 g/dL (31.0-37.0); MCV 95.8 fL (80.0-100.0); MEAN PLATELET VOLUME 10.2 fL (7.4-10.4); MONOCYTES 16.4 % (2-11); NEUTROPHILS 66.3 % (40-80); RBC 2.63 10x6/uL (4.00-5.40); RDW 17.5 % (11.5-14.5); WBC 3.8 10x3/uL (4.8-10.8)
[2020-03-18 05:03] LABS: PLATELET COUNT 33 10x3/uL (130-400)
--- NOTE | 2020-03-18 07:13 | NUR ---
ASSESSMENT DONE. DENIES NEEDS
--- NOTE | 2020-03-18 08:51 | EC ---
PATIENT:LAUREEN OTERO DATE OF SERVICE: 03/14/20 SEX: F MEDICAL RECORD: [id number] DATE OF : 50 LOCATION:D.M2 D.210 AGE OF PATIENT: 69 ADMISSION DATE: 03/14/20 REFERRING PHYSICIAN: INTERPRETING PHYSICIAN: MYRON MERRILL MD ECHOCARDIOGRAM REPORT ECHO CHARGES 4 ECHO COMPLETE Date: 03/15/20 CLINICAL DIAGNOSIS: DYSPNEA ECHOCARDIOGRAPHIC MEASUREMENTS (adult normal given) AC root (d.<3.7cm) 3.0 cm LV Septum d (<1.2 cm> 1.1 cm Valve Excursion 1.7 cm LV Septum (systole) 1.5 cm Left Atria (s.<4.0cm> 4.1 cm LVPW d(<1.2cm) 1.2 cm RV (d.<2.3cm) 2.4 cm LVPW (sytole) 1.3 cm LV diastole(<5.6CM) 5.3 cm MV E-F(>70mm/sec) cm LV systole 4.1 cm LVOT Diameter 1.6 cm MV exc.(>10mm) cm Est.ejection fraction (50-75%) % DOPPLER: LVIT cm/sec A 72 cm/sec E 76 cm/sec LA cm/sec RVSP 30.9 mmHg LVOT 100 cm/sec AOP1/2T m/s Asc. Ao 147 cm/sec RVOT 53 cm/sec RA cm/sec PA 122 cm/sec AV Gradient Peak 8.6 mmHg AV Mean 4.6 mmHg AV Area 1.4 cm MV Gradient Peak 4.5 mmHg MV Mean 2.9 mmHg MV Area cm COMMENTS: Engraver Lettering: Hunter MARTINS Animal Ride Attendant: 3 Dr. Byrne TAPE# PACS Pericardial Effusion N DATE OF SERVICE: Adequate 2D, color flow imaging, spectral Doppler, and M-Mode No LVH. LV internal motion is normal. Wall motion is normal. EF is greater than or equal to 55%. Aortic valve is tricuspid. No evidence of stenosis by Doppler interrogation. Left atrium is normal. Mitral valve shows no prolapse. Trace MR. Right-sided chambers are grossly normal. Trace TR. TRANSINT:[id number] Voice Confirmation ID: [id number] DOCUMENT ID: [id number] ECHOCARDIOGRAM REPORT [id number] BRANDEN,LAUREEN MYRON SAVAGE MD at 0851 CC: [id number] DICTATION DATE: 03/16/20 0949 ELECTRICIAN POWERHOUSE: 03/16/20 1102 ADM IN [place] [id number] [place] [id number]
--- NOTE | 2020-03-18 11:11 | MORECARE ---
CASE MANAGEMENT DISCHARGE SUMMARY PATIENT: LAUREEN OTERO UNIT: [id number] ADM DATE: 03/14/20 AGE: 69 : 50 SEX: F ROOM/BED: D.2715 AUTHOR: SCOTT,DOC PHYSICIAN: REFERRING PHYSICIAN: LYNN SORIANO MD DATE OF SERVICE: 03/18/20 Discharge Plan Patient Name: LAUREEN OTERO Facility: [facility]:[place] : 1950 Planned Disposition: Home with Home Health Anticipated Discharge Date: Discharge Date: Expected LOS: Initial Reviewer: [email or web address] Initial Review Date: 03/17/2020 Generated: 03/18/20 12:11 pm Comments DCP- Discharge Planning Updated by [email or web address]: Susu Hussein on 03/17/20 10:[address] Patient Name: LAUREEN OTERO Admission Status: ER Accout number: [id number] Admission Date: 03-14-2020 : 1950 Admission Diagnosis:INTRA-ABD AND PELVIC SWELLING, MASS AND LUMP, UNSP SITE Attending: LYNN SORIANO Current LOS: 3 Anticipated DC Date: Planned Disposition: Home with Home Health Primary Insurance: MEDICARE A & B Discharge Planning Comments: CM met with patient to complete initial dc planning assessment. CM educated patient on the CM role and verbal consent given by patient to complete assessment. Patient lives at home with her spouse. Her DIL, Tri, is in the room and verbal permission received to discuss discharge planning with DIL present. At discharge patient plans to return home and feels this is a safe discharge. CM discussed availability of home health, rehab services, and medical equipment. Patient states she has [facility] and would like to continue this on discharge. States she has a nurse that comes out weekly and sets up her medication and checks on her. DIL states she or her are also available to stay with patient when needed. CM called [facility] and spoke with Shan and they will continue to see patient on discharge. CM will continue to follow and will assist as needed with dc plans/needs. Behavioral Health Rn: Susu Hussein DCPIA - Discharge Planning Initial Assessment Updated by [id number]: Susu Hussein on 03/17/20 11:34 am * Is the patient Alert and Oriented? Yes * How many steps to enter\exit or inside your home? 3 w/rails * PCP Dr. Kaveh Perez * Pharmacy [facility] on [address] * Preadmission Environment Home with Family * ADLs Partial Dependent * Partial ADLs (Assistance needed) Ambulation * Equipment Walker * List name and contact numbers for known caregivers / representatives who currently or will assist patient after discharge: Tri Otero - DIL - [phone] * Verbal permission to speak to the caregivers and representatives has been obtained from the patient. Yes * Community resources currently utilized Home Health * Please name any agencies selected above. [facility] * Additional services required to return to the preadmission environment? No * Can the patient safely return to the preadmission environment? Yes * Has this patient been hospitalized within the prior 30 days at any hospital? No External [facility]iders [facility] Next Contact Date: Service Request Date: Service Type: Resolution: Reviewer: Comments: Coverage Notice Reviewer: [id number] Hussein Notice Issued Date-Time: 03/17/2020 11:40 Notice Type: Patient Choice Letter Notice Delivered To: Patient Relationship to Patient: Self Wood Car Builder Name: Delivery Method: HAND - Hand Delivered Aziza Days: Prior Verbal Notification: Recipient Understood Notice: Yes Recipient Signature: Yes Med Rec Note Co-signed by Attending: Coverage Notice Comment: RUPERT for [facility] Reviewer: [id number] Hussein Notice Issued Date-Time: 03/17/2020 11:40 Notice Type: IM Discharge Notice Notice Delivered To: Patient Relationship to Patient: Self Wood Car Builder Name: Delivery Method: HAND - Hand Delivered Aziza Days: Prior Verbal Notification: Recipient Understood Notice: Yes Recipient Signature: Yes Med Rec Note Co-signed by Attending: Coverage Notice Comment: IMM explained, signed, given, copy placed in MR Last DP export: 03/17/20 10:45 a Patient Name: LAUREEN OTERO Page [id number] at 1111 All edits/amendments must be made on the electronic document DICTATION DATE: 03/18/20 1111 PROJECT ANALYST: MATTHEW 03/18/20 1111 RPT#: [id number] DC DATE: STATUS: ADM IN [facility] [address] [place] [address] END OF REPORT
[2020-03-18 13:27] VITALS: BP 118/48
[2020-03-18] MEDS ORDERED: ALDACTONE25 MG PO (13:29)
[2020-03-18] MEDS ORDERED: FUROSEMIDE20 MG PO (13:32)
[2020-03-18] MEDS ORDERED: MAG-OX 400 MG400 MG PO (13:33)
--- NOTE | 2020-03-18 14:06 | NUR ---
DC GIVEN TO PT
--- NOTE | 2020-03-18 14:22 | MORECARE ---
CASE MANAGEMENT DISCHARGE SUMMARY PATIENT: LAUREEN OTERO UNIT: [id number] ADM DATE: 03/14/20 AGE: 69 : 50 SEX: F ROOM/BED: D.1923 AUTHOR: SCOTTDOC PHYSICIAN: REFERRING PHYSICIAN: LYNN SORIANO MD DATE OF SERVICE: 03/18/20 Discharge Plan Patient Name: LAUREEN OTERO Facility: [facility]:[place] : 1950 Planned Disposition: Home with Home Health Anticipated Discharge Date: Discharge Date: Expected LOS: Initial Reviewer: [email or web address] Initial Review Date: 03/17/2020 Generated: 03/18/20 3:22 pm Comments DCP- Discharge Planning Updated by [email or web address]: Susu Hussein on 03/18/20 1:[address] DC home today with home health. I spoke with Damien at [facility] and they will put her back on the schedule, clinical faxed. DCP- Discharge Planning Updated by [email or web address]: Susu Hussein on 03/17/20 10:[address] Patient Name: LAUREEN OTERO Admission Status: ER Accout number: [id number] Admission Date: 03-14-2020 : 1950 Admission Diagnosis:INTRA-ABD AND PELVIC SWELLING, MASS AND LUMP, UNSP SITE Attending: LYNN SORIANO Current LOS: 3 Anticipated DC Date: Planned Disposition: Home with Home Health Primary Insurance: MEDICARE A & B Discharge Planning Comments: CM met with patient to complete initial dc planning assessment. CM educated patient on the CM role and verbal consent given by patient to complete assessment. Patient lives at home with her spouse. Her DIL, Tri, is in the room and verbal permission received to discuss discharge planning with DIL present. At discharge patient plans to return home and feels this is a safe discharge. CM discussed availability of home health, rehab services, and medical equipment. Patient states she has [facility] and would like to continue this on discharge. States she has a nurse that comes out weekly and sets up her medication and checks on her. DIL states she or her are also available to stay with patient when needed. CM called [facility] and spoke with George and they will continue to see patient on discharge. CM will continue to follow and will assist as needed with dc plans/needs. Club Car Attendant: Susu Hussein DCPIA - Discharge Planning Initial Assessment Updated by [id number]: Susu Hussein on 03/17/20 11:34 am * Is the patient Alert and Oriented? Yes * How many steps to enter\exit or inside your home? 3 w/rails * PCP Dr. Kaveh Perez * Pharmacy [facility] on [address] * Preadmission Environment Home with Family * ADLs Partial Dependent * Partial ADLs (Assistance needed) Ambulation * Equipment Walker * List name and contact numbers for known caregivers / representatives who currently or will assist patient after discharge: Tri Otero - DIL - [phone] * Verbal permission to speak to the caregivers and representatives has been obtained from the patient. Yes * Community resources currently utilized Home Health * Please name any agencies selected above. [facility] * Additional services required to return to the preadmission environment? No * Can the patient safely return to the preadmission environment? Yes * Has this patient been hospitalized within the prior 30 days at any hospital? No External Providers [facility] Next Contact Date: Service Request Date: Service Type: Resolution: Reviewer: Comments: Coverage Notice Reviewer: [id number] Liseth Hussein Notice Issued Date-Time: 03/17/2020 11:40 Notice Type: Patient Choice Letter Notice Delivered To: Patient Relationship to Patient: Self Oyster Unloader Name: Delivery Method: HAND - Hand Delivered Aziza Days: Prior Verbal Notification: Recipient Understood Notice: Yes Recipient Signature: Yes Med Rec Note Co-signed by Attending: Coverage Notice Comment: RUPERT for [facility] Reviewer: [email or web address] Liseth Hussein Notice Issued Date-Time: 03/17/2020 11:40 Notice Type: IM Discharge Notice Notice Delivered To: Patient Relationship to Patient: Self Oyster Unloader Name: Delivery Method: HAND - Hand Delivered Aziza Days: Prior Verbal Notification: Recipient Understood Notice: Yes Recipient Signature: Yes Med Rec Note Co-signed by Attending: Coverage Notice Comment: IMM explained, signed, given, copy placed in MR Last DP export: 03/18/20 10:11 a Patient Name: BRANDENLAUREEN Page [id number] at 1422 All edits/amendments must be made on the electronic document DICTATION DATE: 03/18/201421 SAND MILL OPERATOR CORE SAND: MATTHEW 03/18/201421 RPT#: [id number] DC DATE: STATUS: ADM IN [facility] [address] [place] [address] END OF REPORT
--- NOTE | 2020-03-18 14:59 | NUR ---
DC HOME PER PERSONAL CAR
--- NOTE | 2020-03-21 08:58 | MORECARE ---
CASE MANAGEMENT DISCHARGE SUMMARY PATIENT: LAUREEN OTERO UNIT: [id number] ADM DATE: 03/14/20 AGE: 69 : 50 SEX: F ROOM/BED: D.9915 AUTHOR: SCOTT,DOC PHYSICIAN: REFERRING PHYSICIAN: LYNN SORIANO MD DATE OF SERVICE: 03/21/20 Discharge Plan Patient Name: LAUREEN OTERO Facility: [facility]:[place] : 1950 Planned Disposition: Home with Home Health Anticipated Discharge Date: Discharge Date: 03/18/2020 Expected LOS: Initial Reviewer: [email or web address] Initial Review Date: 03/17/2020 Generated: 03/21/20 9:58 am Comments DCP- Discharge Planning Updated by [email or web address]: Susu Hussein on 03/18/20 1:[address] DC home today with home health. I spoke with Damien at [facility] and they will put her back on the schedule, clinical faxed. DCP- Discharge Planning Updated by [id number]: Susu Hussein on 03/17/20 10:[address] Patient Name: LAUREEN OTERO Admission Status: ER Accout number: [id number] Admission Date: 03-14-2020 : 1950 Admission Diagnosis:INTRA-ABD AND PELVIC SWELLING, MASS AND LUMP, UNSP SITE Attending: LYNN SORIANO Current LOS: 3 Anticipated DC Date: Planned Disposition: Home with Home Health Primary Insurance: MEDICARE A & B Discharge Planning Comments: CM met with patient to complete initial dc planning assessment. CM educated patient on the CM role and verbal consent given by patient to complete assessment. Patient lives at home with her spouse. Her DIL, Tri, is in the room and verbal permission received to discuss discharge planning with DIL present. At discharge patient plans to return home and feels this is a safe discharge. CM discussed availability of home health, rehab services, and medical equipment. Patient states she has [facility] and would like to continue this on discharge. States she has a nurse that comes out weekly and sets up her medication and checks on her. DIL states she or her are also available to stay with patient when needed. CM called [facility] and spoke with George and they will continue to see patient on discharge. CM will continue to follow and will assist as needed with dc plans/needs. Managed Care Specialist: Susu Hussein DCPIA - Discharge Planning Initial Assessment Updated by [id number]: Susu Hussein on 03/17/20 11:34 am * Is the patient Alert and Oriented? Yes * How many steps to enter\exit or inside your home? 3 w/rails * PCP Dr. Kaveh Perez * Pharmacy [facility] on [address] * Preadmission Environment Home with Family * ADLs Partial Dependent * Partial ADLs (Assistance needed) Ambulation * Equipment Walker * List name and contact numbers for known caregivers / representatives who currently or will assist patient after discharge: Tri Otero - DIL - [phone] * Verbal permission to speak to the caregivers and representatives has been obtained from the patient. Yes * Community resources currently utilized Home Health * Please name any agencies selected above. [facility] * Additional services required to return to the preadmission environment? No * Can the patient safely return to the preadmission environment? Yes * Has this patient been hospitalized within the prior 30 days at any hospital? No Coverage Notice Reviewer: [id number] Liseth Hussein Notice Issued Date-Time: 03/17/2020 11:40 Notice Type: Patient Choice Letter Notice Delivered To: Patient Relationship to Patient: Self Room Service Manager Name: Delivery Method: HAND - Hand Delivered Aziza Days: Prior Verbal Notification: Recipient Understood Notice: Yes Recipient Signature: Yes Med Rec Note Co-signed by Attending: Coverage Notice Comment: [facility] for [facility] Reviewer: [id number] Liseth Hussein Notice Issued Date-Time: 03/17/2020 11:40 Notice Type: IM Discharge Notice Notice Delivered To: Patient Relationship to Patient: Self Room Service Manager Name: Delivery Method: HAND - Hand Delivered Aziza Days: Prior Verbal Notification: Recipient Understood Notice: Yes Recipient Signature: Yes Med Rec Note Co-signed by Attending: Coverage Notice Comment: IMM explained, signed, given, copy placed in MR Last DP export: 03/18/20 1:22 p Patient Name: LAUREEN OTERO Page [id number] at 0858 All edits/amendments must be made on the electronic document DICTATION DATE: 03/21/20 0858 K 12 SCHOOL PROFESSIONAL: MATTHEW 03/21/20 0858 RPT#: [id number] DC DATE:03/18/20 STATUS: DIS IN [facility] [address] [place] [address] END OF REPORT
== END 2020-03-18 14:59 | disposition home health service (06) | DRG 432 ==
LOC: D.ER 17:26 → D.M2 21:31
PROVIDERS: Family Medicine; Internal Medicine Gastroenterology; Internal Medicine Hematology & Oncology; Internal Medicine Nephrology; Radiology Diagnostic Radiology; ADMIT Family Medicine; ATTEND Family Medicine
PROC: 0W9G3ZZ Drainage of Peritoneal Cavity, Percutaneous Approach (ICD-10-PCS; principal; 2020-03-15 11:45)
DX: K74.60 Unspecified cirrhosis of liver (principal); K72.00 Acute and subacute hepatic failure without coma; R18.8 Other ascites; N17.9 Acute kidney failure, unspecified; D61.818 Other pancytopenia; K86.2 Cyst of pancreas; K86.89 Other specified diseases of pancreas; E11.65 Type 2 diabetes mellitus with hyperglycemia; E11.22 Type 2 diabetes mellitus with diabetic chronic kidney disease; I12.9 Hypertensive chronic kidney disease with stage 1 through stage 4 chronic kidney disease, or unspecified chronic kidney disease; N18.3 Chronic kidney disease, stage 3 (moderate); K76.0 Fatty (change of) liver, not elsewhere classified; K21.9 Gastro-esophageal reflux disease without esophagitis; M81.0 Age-related osteoporosis without current pathological fracture; K80.20 Calculus of gallbladder without cholecystitis without obstruction; D63.1 Anemia in chronic kidney disease; E87.6 Hypokalemia; Z85.79 Personal history of other malignant neoplasms of lymphoid, hematopoietic and related tissues